=== PATIENT | female | born 2000 ===

== ENCOUNTER 2021-01-14 06:34 | Inpatient (IN) | payer MEDICAID, OTHER ==
[2021-01-14] MEDS ORDERED: OXYTOCIN 10 UNIT/1 ML INJ ONE (06:42)
[2021-01-14] MEDS ORDERED: OXYTOCIN DRIP 30,000 MILLIUNITS/500 ML BAG IV ONE (07:09)
[2021-01-14] MEDS ORDERED: MINERAL OIL 30 ML ORAL LIQD ONE (07:15)
--- NOTE | 2021-01-14 07:34 | Procedure Note ---
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 ([facility]) Estimated blood loss: other (EBL 350) - Vaginal Delivery position: OA (STEFANIE) Intrapartum events: none Delivery induction: none Delivery monitor: external FHT, external uterine Route of delivery: Delivery placenta: spontaneous Delivery cord: nuchal cord Episiotomy: none Delivery laceration: other (Left labial ) Anesthesia: none Delivery comments: Female infant birthed over intact perineum, nuchal cordx1 somersaulted through, placed to maternal abd, cord clamped and cut after cessation of pulse, placenta delivered spontaneously, intact, 3 vessel cord, uterus midline, firm, at umbilicus, homeostasis after fundal massage, high labial lac that was hemostatic w/out repair, all counts correct, baby 7#7, APGARS 8/9, EBL 350, mother and baby LDR stable - A at 1 minute: 8 at 5 minutes: 9 Infant Gender: Female (7#7)
--- NOTE | 2021-01-14 07:38 | History and Physical Report ---
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, gonorrhea, herpes, HIV, syphilis, trichomonas Social history: no significant social history - Obstetrical History Expected Date of Delivery: 01/11/21 Actual Gestation: 40 Week(s) 3 Day(s) : 4 Para: 1 Hx # Term Pregnancies: 1 Number of Pregnancies: 0 Spontaneous Abortions: 2 Induced : 0 Number of Living Children: 1 Medications and Allergies Allergies Allergy/AdvReac Type Severity Reaction Status Date / Time No Known Allergies Allergy Verified 01/14/21 07:46 Review of Systems All systems: negative - Vital Signs Vital signs: Vital Signs Pulse BP 86 111/59 01/14/21 07:04 01/14/21 07:04 Temp Pulse Resp BP Pulse Ox 84 108/65 96 01/14/21 07:35 01/14/21 07:35 01/14/21 07:32 - Physical Exam Breasts: Positive: normal Cardiovascular: Regular rate, Normal S1, Normal S2 Abdomen: Positive: normal appearance, soft, normal bowel sounds. Negative: distention, tenderness Vulva: both: normal Vagina: Positive: normal moisture. Negative: discharge Cervix: Negative: lesion, discharge Uterus: Positive: normal size, normal contour Adnexa: both: normal Anus/Rectum: Positive: normal perianal skin, heme negative. Negative: rectal mass, hemorrhoids Extremities: Deep Tendon Reflex Grade: Normal +2 - Obstetrical FHR: auscultation normal Uterine Contraction Pattern: Regular Results All other labs normal. 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 Upon arrival pt was complete w/ bulging membranes at introitus, arom clear, pt birthed liveborn female Dr. Perez aware of pt. - Patient Problems (1) 40 weeks gestation of Current Visit: Yes Status: Acute (2) (normal spontaneous vaginal delivery) Current Visit: Yes Status: Acute
[2021-01-14] MEDS ORDERED: diphenhydrAMINE 25 MG CAP PO PRN (07:40)
[2021-01-14] MEDS ORDERED: METHYLERGONOVINE MALEATE 0.2 MG/ML VIAL IM PRN (07:40)
[2021-01-14] MEDS ORDERED: ACETAMINOPHEN 325 MG TAB PO PRN (07:40)
[2021-01-14] MEDS ORDERED: LANOLIN/ZINC/DIMETHICONE (LANSINOH) 7 GM TP PRN (07:40)
[2021-01-14] MEDS ORDERED: CARBOPROST TROMETHAMINE 250 MCG/1 ML INJ IM PRN (07:40)
[2021-01-14] MEDS ORDERED: MAGNESIUM HYDROXIDE (MOM) ORAL LIQD UDC PO PRN (07:40)
[2021-01-14] MEDS ORDERED: ONDANSETRON 4 MG/2 ML INJ IV PRN (07:40)
[2021-01-14] MEDS ORDERED: LOPERAMIDE 2 MG CAP PO PRN (07:40)
[2021-01-14] MEDS ORDERED: miSOPROStol 100 MCG TAB PR PRN (07:40)
[2021-01-14] MEDS ORDERED: PROMETHAZINE 25 MG TAB PO PRN (07:40)
[2021-01-14] MEDS ORDERED: KETOROLAC 30 MG/1 ML INJ IV PRN (07:40)
[2021-01-14] MEDS ORDERED: BENZOCAINE/MENTHOL 20/0.5% TOP SPRAY 56 GM TP PRN (07:40)
[2021-01-14] MEDS ORDERED: WITCH HAZEL/ GLYCERIN PAD TP PRN (07:40)
[2021-01-14 07:56] LABS: Hematocrit 37.4 % (30.3-42.9); Hemoglobin 12.7 gm/dl (10.1-14.3); Mean Corpuscular HGB Conc 34 % (30-34); Mean Corpuscular Volume 86 fl (79-97); Platelet Count 239 K/mm3 (140-440); Red Blood Count 4.36 M/mm3 (3.65-5.03); Red Cell Distribution Width 14.5 % (13.2-15.2)
[2021-01-14] MEDS ORDERED: OXYTOCIN DRIP 30 UNITS/500 ML BAG IV SCH (08:00)
[2021-01-14] MEDS ORDERED: IBUPROFEN 600 MG TAB PO SCH (08:00)
[2021-01-14] MEDS ORDERED: fentaNYL 100 MCG/2 ML INJ IV ONE (09:00)
--- NOTE | 2021-01-14 10:33 | Ultrasound Report ---
ULTRASOUND PELVIS INDICATION / CLINICAL INFORMATION: bleeding, check for retained placenta. TECHNIQUE: Transabdominal. Duplex Color Doppler used: Yes. COMPARISON: None available FINDINGS: UTERUS: - Appearance: Enlarged with appearance. - Size (cm): 20.3 x 6.7 x 15.8 - Endometrial Complex (if present): Markedly thickened and heterogeneous measuring up to 3.8 cm in th ickness. Prominent color Doppler flow.. - Mass or cyst: None. - Additional findings: None. RIGHT ADNEXA: Not visualized. LEFT ADNEXA: Not visualized. URINARY BLADDER: No significant abnormality. FREE FLUID: None. ADDITIONAL FINDINGS: None. IMPRESSION: 1. Thickened endometrial complex in a uterus. It is difficult to distinguish a uterus containing clots from retained products of conception. Clinical correlation is recommended. Signer Name: Adrienne Correa MD Signed: 01/14/2021 10:29 AM Workstation Name: [id number]
[2021-01-14] MEDS: DOCUSATE SODIUM 100 MG CAP PO SCH ×2 (11:02→22:04)
[2021-01-14] MEDS: IBUPROFEN 800 MG TAB PO SCH ×2 (11:02→18:32)
[2021-01-14] MEDS: FERROUS SULFATE 325 MG TAB PO SCH ×2 (11:03→22:04)
[2021-01-14] MEDS: PRENATAL VIT27-FE FUMARATE-FOLIC ACID VIT TAB PO SCH (11:08)
[2021-01-14 11:23] LABS: Hematocrit 32.6 % (30.3-42.9)
--- NOTE | 2021-01-14 14:04 | Event Note ---
Date: 01/14/21 US of uterus shows thickened endometrium with possible clots. Now with moderate amount of lochia and firm fundus. Oral methergine series ordered. Coronavirus test positive. Chest x-ray ordered.
--- NOTE | 2021-01-14 14:45 | XRay Report ---
CHEST 2 VIEWS INDICATION / CLINICAL INFORMATION: positive for coronavirus. COMPARISON: None available. FINDINGS: SUPPORT DEVICES: None. HEART / MEDIASTINUM: No significant abnormality. LUNGS / PLEURA: No significant pulmonary or pleural abnormality. No pneumothorax. ADDITIONAL FINDINGS: No significant additional findings. IMPRESSION: 1. No acute findings. Signer Name: Janak Lewis MD Signed: 01/14/2021 2:40 PM Workstation Name: [id number]
[2021-01-14] MEDS: METHYLERGONOVINE 0.2 MG TABLET PO SCH (18:33)
[2021-01-15] MEDS: IBUPROFEN 800 MG TAB PO SCH ×3 (00:40→23:03)
[2021-01-15] MEDS: METHYLERGONOVINE 0.2 MG TABLET PO SCH ×3 (00:40→23:04)
[2021-01-15] MEDS ORDERED: TETANUS,DIPH,PERTUSS(ACELL) VACCINE 0.5 ML SYRINGE IM ONE (06:00)
[2021-01-15] MEDS: FERROUS SULFATE 325 MG TAB PO SCH ×2 (09:07→23:04)
[2021-01-15] MEDS: PRENATAL VIT27-FE FUMARATE-FOLIC ACID VIT TAB PO SCH (09:07)
[2021-01-15] MEDS: DOCUSATE SODIUM 100 MG CAP PO SCH ×2 (09:07→23:04)
--- NOTE | 2021-01-15 13:32 | Progress Note ---
Assessment and Plan A: S/P Pos COVID 19 Delayed PPH p: Continue routine pp orders Continue Methergine as ordered Awaiting c-xray results D/C home within 24 hours if stable Subjective - Subjective Date of service: 01/15/21 Principal diagnosis: s/p Patient reports: appetite normal, voiding normally, pain well controlled, ambulating normally, other (Denies sob. Rubra lochia wnl no clots were noted) [place]: doing well, bottle feeding Objective - Vital Signs Latest vital signs: Vital Signs Temp Pulse Resp BP Pulse Ox Pulse Ox 01/15/21 00:45 98.7 F 86 14 102/73 97 01/15/21 00:40 12 01/14/21 20:00 98 01/14/21 18:38 98.6 F 72 17 112/72 98 Intake and Output 01/14/21 01/15/21 01/15/21 22:59 06:59 14:59 Intake Total 150 Balance 150 Intake: Oral 150 Other: Total, Intake Amount 150 # Voids Void 1 - Exam Breasts: Present: normal Abdomen: Present: normal appearance, soft, normal bowel sounds Vulva: both: normal Uterus: Present: normal, firm, fundal height below umbilicus Extremities: Present: normal - Labs Labs: Abnormal lab results 01/14/21 Range/Units 10:43 Coronavirus (PCR) Positive A (Negative)
[2021-01-16] MEDS: IBUPROFEN 800 MG TAB PO SCH (05:50)
[2021-01-16 08:45] VITALS: BP 90/65
--- NOTE | 2021-01-16 09:07 | Discharge Summary ---
Providers - Providers Date of Admission: 01/14/21 07:02 Date of discharge: 01/16/21 Attending physician: ROLLY HILLS MD Primary care physician: ROLLY HILLS MD Hospitalization Reason for admission: active labor, IUP at term Delivery: Episiotomy: none Laceration: none Other procedures: other (chest xray) complications: uterine atony Discharge diagnosis: IUP at term delivered baby: female Hospital course: Pt was admitted in active labor and had a precipitous . She developed uterine atony pp and was started on po Methergine. Pt also tested pos for covid 1, but was asymptomatic. See H&P, delivery summary, and pp notes. Condition at discharge: Stable Disposition: 01 HOME / SELF CARE / HOMELESS Plan - Discharge Medications Prescriptions: Ibuprofen [Motrin 800 MG tab] 800 mg PO Q6H PRN #30 tablet PRN Reason: Menstrual Cramps - Provider Discharge Summary Activity: routine, no sex for 6 weeks, no heavy lifting 4 weeks, no strenuous exercise Diet: routine Instructions: routine Additional instructions: [] Smoking cessation referral if applicable(refer to patient education folder for contact #) [] Refer to [facility] Booklet Call your doctor immediately for: * Fever > 100.5 * Heavy vaginal bleeding ( >1 pad per hour) * Severe persistent headache * Shortness of breath * Reddened, hot, painful area to leg or breast * Drainage or odor from incision. * Keep incision clean and dry at all times and follow doctor's instructions regarding bathing/showering - Follow up plan Follow up: ROLLY HILLS MD [Primary Care Provider] - 6 Weeks
== END 2021-01-16 10:30 | disposition home or self-care (01) | DRG 805 ==
LOC: TRG 06:34 → LD 06:41 → TRG 07:01 → LD 07:02 → OB 10:06
PROVIDERS: ADMIT Obstetrics & Gynecology; ATTEND Obstetrics & Gynecology
PROC: 10E0XZZ Delivery of Products of Conception, External Approach (ICD-10-PCS; principal; 2021-01-14)
PROC: 3E0234Z Introduction of Serum, Toxoid and Vaccine into Muscle, Percutaneous Approach (ICD-10-PCS; 2021-01-15)
DX: O98.52 Other viral diseases complicating childbirth (principal); U07.1 COVID-19; Z37.0 Single live birth; O72.1 Other immediate postpartum hemorrhage; Z3A.40 40 weeks gestation of pregnancy; Z23 Encounter for immunization; O69.81X0 Labor and delivery complicated by cord around neck, without compression, not applicable or unspecified; O70.0 First degree perineal laceration during delivery
CPT/HCPCS: 36415; 71046; 76856; 85014; 85018; 85027; 86592; 86705; 86706; 86762; 86850; 86900; 86901; 87806; G0378; J2210; J2590; J3010; U0003